=== PATIENT | female | born 1960 | race Caucasian/White ===

== ENCOUNTER 2023-01-25 15:08 | Inpatient (IN) ==
[2023-01-25 16:00] LABS: Hematocrit 12.8 % (35-45); Hemoglobin 4.5 g/dL (11.5-14.3); Mean Corpuscular Hemoglobin 36.7 pg (27-33); Mean Corpuscular Hgb Conc 35.5 g/dL (31-36); Mean Corpuscular Volume 103.3 fL (80-97); Mean Platelet Volume 6.8 fL (7.5-11.2); Platelet Count 354 10^3/uL (150-450); Red Blood Count 1.24 10^6/uL (3.63-4.92); Red Cell Distribution Width 15.4 % (12-17); White Blood Count 8.5 10^3/uL (3.8-11.8)
[2023-01-25 16:08] LABS: Albumin 3.8 g/dL (3.2-5.2); Calcium 8.6 mg/dL (8.6-10.3); Magnesium 1.9 mg/dL (1.9-2.7); Potassium 4.1 mmol/L (3.5-5.0); Total Bilirubin 0.2 mg/dL (0.2-1.0)
[2023-01-25 16:14] LABS: Albumin/Globulin Ratio 1.8 (1-3); Creatinine, Serum 0.77 mg/dL (0.51-0.95); Globulin 2.1 g/dL (2-4); Total Protein 5.9 g/dL (6.4-8.9); eGFR CKD-EPI 86.6 (>60)
[2023-01-25 16:45] LABS: Anisocytosis 1+; Macrocytosis 1+
[2023-01-25 16:46] LABS: ABS Lymphocytes 1.3 10^3/uL (1.0-4.8); ABS Monocytes 0.5 10^3/uL (0.0-0.9); ABS Neutrophils 6.7 10^3/uL (1.5-7.6); ABS Nucleated RBC 0.01 10^3/ul; Eosinophil % 0.3 %; Lymphocyte % 14.9 %; Nucleated Red Blood Cells % 0.1 /100 WBC (0.0-0.4); Polychromasia 1+
[2023-01-25 16:50] LABS: Activated Partial Thrombo Time 28.1 seconds (26.0-38.0); INR 1.23 (0.83-1.13)
[2023-01-25] MEDS ORDERED: Pantoprazole 80 mg in NS BAG 80 MG/250 ML BAG IV ONE (17:37)
[2023-01-25] MEDS ORDERED: Albuterol HFA INHALER 8 gm MDI INH PRN (19:10)
[2023-01-25] MEDS ORDERED: Ondansetron ODT 4 mg TAB 4 MG TAB PO PRN (19:14)
[2023-01-25] MEDS: Pantoprazole VIAL 40 MG VIAL IV SCH (22:14)
[2023-01-25 23:06] LABS: Hematocrit 23.8 % (35-45); Hemoglobin 8.6 g/dL (11.5-14.3); Mean Corpuscular Hemoglobin 33.5 pg (27-33); Mean Corpuscular Hgb Conc 36.1 g/dL (31-36); Mean Corpuscular Volume 92.8 fL (80-97); Mean Platelet Volume 6.6 fL (7.5-11.2); Platelet Count 230 10^3/uL (150-450); Red Blood Count 2.56 10^6/uL (3.63-4.92); White Blood Count 6.8 10^3/uL (3.8-11.8)
[2023-01-25 23:12] LABS: ABS Basophils 0.1 10^3/uL (0.0-0.1); ABS Lymphocytes 1.6 10^3/uL (1.0-4.8); ABS Monocytes 0.4 10^3/uL (0.0-0.9); ABS Neutrophils 4.7 10^3/uL (1.5-7.6); ABS Nucleated RBC 0.02 10^3/ul; Eosinophil % 0.5 %; Lymphocyte % 23.5 %; Nucleated Red Blood Cells % 0.3 /100 WBC (0.0-0.4)
[2023-01-26 01:18] LABS: Urine Appearance Clear; Urine Bilirubin Negative (Negative); Urine Blood Negative (Negative); Urine Color Yellow; Urine Glucose Negative (Negative); Urine Ketones Negative (Negative); Urine Nitrite Negative (Negative); Urine Protein Negative (Negative); Urine Specific Gravity 1.014 (1.002-1.030); Urine Urobilinogen Negative (Negative)
[2023-01-26] MEDS ORDERED: Nicotine GUM 4MG FRUIT FLAVOR PO PRN (04:56)
[2023-01-26 06:23] LABS: ABS Lymphocytes 1.3 10^3/uL (1.0-4.8); ABS Monocytes 0.4 10^3/uL (0.0-0.9); ABS Neutrophils 3.9 10^3/uL (1.5-7.6); ABS Nucleated RBC 0.02 10^3/ul; Eosinophil % 0.9 %; Hematocrit 26.4 % (35-45); Hemoglobin 9.4 g/dL (11.5-14.3); Lymphocyte % 22.9 %; Mean Corpuscular Hgb Conc 35.8 g/dL (31-36); Mean Corpuscular Volume 92.1 fL (80-97); Mean Platelet Volume 6.8 fL (7.5-11.2); Nucleated Red Blood Cells % 0.3 /100 WBC (0.0-0.4); Platelet Count 228 10^3/uL (150-450); Red Blood Count 2.86 10^6/uL (3.63-4.92); Red Cell Distribution Width 15.4 % (12-17); White Blood Count 5.6 10^3/uL (3.8-11.8)
[2023-01-26 06:50] LABS: Calcium 7.9 mg/dL (8.6-10.3); Creatinine, Serum 0.77 mg/dL (0.51-0.95); Potassium 3.6 mmol/L (3.5-5.0); eGFR CKD-EPI 86.6 (>60)
[2023-01-26] MEDS: Tiotropium Brom/Olodaterol MDI (ACUTE) INH SCH (07:36)
[2023-01-26] MEDS: Nicotine PATCH 21 MG/24 HR PATCH TRANSDERM SCH (08:48)
[2023-01-26] MEDS: Pantoprazole VIAL 40 MG VIAL IV SCH ×2 (08:49→21:00)
[2023-01-26] MEDS ORDERED: Acetaminophen IV 1 GM/100ML 1,000 MG/100 ML BAG IV PRN (09:16)
[2023-01-26] MEDS ORDERED: fentaNYL 100 mcg/2 ml 50 MCG/ML VIAL ONE (16:27)
[2023-01-26] MEDS ORDERED: Midazolam 10 mg/10 ml VIAL 1 mg/ml 10 ml VIAL (10 mg) ONE (16:27)
[2023-01-26 19:11] LABS: Hemoglobin 9.2 g/dL (11.5-14.3); Mean Corpuscular Hemoglobin 32.7 pg (27-33); Mean Corpuscular Hgb Conc 35.2 g/dL (31-36); Mean Corpuscular Volume 92.8 fL (80-97); Mean Platelet Volume 6.3 fL (7.5-11.2); Platelet Count 235 10^3/uL (150-450); White Blood Count 4.1 10^3/uL (3.8-11.8)
[2023-01-27] MEDS: Tiotropium Brom/Olodaterol MDI (ACUTE) INH SCH (07:31)
[2023-01-27] MEDS: Nicotine PATCH 21 MG/24 HR PATCH TRANSDERM SCH (08:24)
[2023-01-27] MEDS: Pantoprazole VIAL 40 MG VIAL IV SCH (08:24)
[2023-01-27] MEDS ORDERED: Aspirin EC 81 mg TAB.EC (enteric coated) PO SCH (09:00)
[2023-01-27 09:17] LABS: % Iron Saturation 5 % (15-55); .Transferrin 278 mg/dL (203-362); Iron 21 ug/dL (50-212); Total Iron Binding Capacity 389 mcg/dL (250-450); Unsaturated Iron Binding 368 ug/dL
[2023-01-27 09:31] LABS: Folate 15.48 ng/mL (5.90-24.80)
[2023-01-27 09:32] LABS: Hematocrit 27.2 % (35-45); Hemoglobin 9.7 g/dL (11.5-14.3); Mean Corpuscular Hgb Conc 35.7 g/dL (31-36); Mean Corpuscular Volume 92.5 fL (80-97); Mean Platelet Volume 6.7 fL (7.5-11.2); Platelet Count 247 10^3/uL (150-450); Red Blood Count 2.94 10^6/uL (3.63-4.92); Red Cell Distribution Width 16.2 % (12-17); Vitamin B12 > 1450 pg/mL (180-914); White Blood Count 4.5 10^3/uL (3.8-11.8)
[2023-01-27] MEDS ORDERED: Iron Sucrose 200 MG in NS 0.9% 100 ml BAG 100 ML IVPB ONE (10:43)
[2023-01-27 13:48] VITALS: BP 119/69
[2023-01-27 17:33] LABS: Anion Gap 9 mmol/L (2-16); Blood Urea Nitrogen 9 mg/dL (6-24); CO2 Carbon Dioxide 19 mmol/L (22-32); Calcium 8.2 mg/dL (8.6-10.3); Chloride 110 mmol/L (101-111); Creatinine, Serum 0.65 mg/dL (0.51-0.95); Glucose 92 mg/dL (70-100); Sodium 138 mmol/L (135-145); eGFR CKD-EPI 98.9 (>60)
== END 2023-01-27 14:01 | disposition home or self-care (01) | DRG 254 ==
LOC: ED 15:08 → EDHOLD 18:41 → SUATTDRO 18:41 → MED 01-26 00:11
PROVIDERS: ADMIT Hospitalist; ATTEND Hospitalist